=== PATIENT | female | born 1930 | race Caucasian/White ===

== ENCOUNTER → 2017-04-08 | Outpatient (CLI) | payer MEDICARE ==
[~2017-04-08] MED LIST: ACLI400A2 INH; ALBU0.63 NEB; ASPI-621 PO; ATOR10TA9; BISA10SU2 PR; CALC-112 PO; CEFD300C37 PO; DIAZ5TAB; DOCU-131 PO; FLUT12HF2; FLUT1DIS; FLUT1DIS IH; LISI-167; LISI5TAB7 PO; METH1TAB13 PO; MULT-257 PO; MULT-658 PO; ONDA4TAB10 PO; OXYC-302 PO; PARO10TA3; PARO10TA56 PO; POLY17PO5 PO; PRAV10TA2 PO; QUET25TA5 PO; SPIREVA; TAMS-11 PO; TIOT18CA INH; [UNRECOGNIZED DRUG - CODE] PO
[2017-04-08 15:55] LABS: BASOPHILS # (AUTO) 0.04 x10^3/uL (0-0.1); BASOPHILS % (AUTO) 1 % (0-1); EOSINOPHILS # (AUTO) 0.17 x10^3/uL (0-0.4); EOSINOPHILS % (AUTO) 2 % (1-7); LYMPHOCYTES % (AUTO) 22 % (22-44); MD NO; MEAN CORPUSCULAR HGB CONC 31.4 g/dL (32.4-35.8); MEAN CORPUSCULAR VOLUME 63.6 fL (80-100); MEAN PLATELET VOLUME 9.2 fL (7.4-10.4); MONOCYTES # (AUTO) 0.65 x10^3/uL (0.2-0.8); MONOCYTES % (AUTO) 7 % (2-9); NEUTROPHILS % (AUTO) 69 % (42-75); PLATELET COUNT 214 x10^3/uL (130-400); RED BLOOD COUNT 5.64 x10^6/uL (3.82-5.3); RED CELL DISTRIBUTION WIDTH 15.7 % (9.6-15.2)
[2017-04-08 16:08] LABS: CHLORIDE 108 mmol/L (98-107)
[2017-04-08 16:17] LABS: ALANINE AMINOTRANSFERASE 45 U/L (12-78); ALBUMIN 3.8 g/dL (3.4-5.0); ALKALINE PHOSPHATASE 63 U/L (45-117); ANION GAP 7 mmol/L (5-15); BILIRUBIN,TOTAL 1.1 mg/dL (0.2-1.0); CALCIUM 9.7 mg/dL (8.5-10.1); CHOL/HDL RATIO 2.6; CHOLESTEROL, TOTAL 127 mg/dL (140-239); CREATININE 0.67 mg/dL (0.55-1.02); HDL CHOL % 39 % (28-40); HDL CHOLESTEROL (DIRECT) 49 mg/dL (40-60); LDL CHOLESTEROL,CALCULATED 47 mg/dL (54-169); TOTAL PROTEIN 7.7 g/dL (6.4-8.2); TRIGLYCERIDES 153 mg/dL (50-200); VLDL CHOLESTEROL 31 mg/dL (0-25)
== END | disposition home or self-care (01) ==
LOC: CFH 14:45
PROVIDERS: ATTEND Nurse Practitioner
DX: D72.829 Elevated white blood cell count, unspecified (principal); I10 Essential (primary) hypertension; R71.8 Other abnormality of red blood cells
CPT/HCPCS: 36415; 80053; 80061; 85025

== ENCOUNTER 2017-10-03 08:09 | Emergency (ER) | payer MEDICARE ==
[~2017-10-03] VITALS: Ht 165.1 cm; Wt 66.4 kg
[2017-10-03] MEDS ORDERED: DIAZ5TAB4 PO (08:40)
[2017-10-03] MEDS ORDERED: BUSP5TAB2 PO (08:40)
[2017-10-03] MEDS ORDERED: ATOR-2 PO (08:40)
[2017-10-03] MEDS ORDERED: AMLO10TA2 PO (08:40)
[2017-10-03] MEDS ORDERED: BRAN1000 PO (08:40)
[2017-10-03 09:00] LABS: BASOPHILS # (AUTO) 0.01 x10^3/uL (0-0.1); BASOPHILS % (AUTO) 0 % (0-1); EOSINOPHILS # (AUTO) 0.12 x10^3/uL (0-0.4); EOSINOPHILS % (AUTO) 1 % (1-7); LYMPHOCYTES # (AUTO) 1.84 x10^3/uL (1-3.4); LYMPHOCYTES % (AUTO) 19 % (22-44); MD NO; MEAN CORPUSCULAR HEMOGLOBIN 20.3 pg (27.0-34.8); MEAN CORPUSCULAR HGB CONC 31.4 g/dL (32.4-35.8); MEAN CORPUSCULAR VOLUME 64.6 fL (80-100); MEAN PLATELET VOLUME 8.3 fL (7.4-10.4); MONOCYTES # (AUTO) 0.46 x10^3/uL (0.2-0.8); MONOCYTES % (AUTO) 5 % (2-9); NEUTROPHILS # (AUTO) 7.29 x10^3/uL (1.8-6.8); NEUTROPHILS % (AUTO) 75 % (42-75); PLATELET COUNT 222 x10^3/uL (130-400); RED CELL DISTRIBUTION WIDTH 15.1 % (9.6-15.2)
[2017-10-03 09:11] LABS: ALANINE AMINOTRANSFERASE 49 U/L (12-78); ALBUMIN 3.8 g/dL (3.4-5.0); ANION GAP 7 mmol/L (5-15); CALCIUM 9.8 mg/dL (8.5-10.1); CHLORIDE 107 mmol/L (98-107); CREATININE 0.72 mg/dL (0.55-1.02)
[2017-10-03 09:13] LABS: ALKALINE PHOSPHATASE 58 U/L (45-117); BILIRUBIN,TOTAL 0.9 mg/dL (0.2-1.0); TOTAL PROTEIN 7.3 g/dL (6.4-8.2)
[2017-10-03 09:55] LABS: CULTURE INDICATED? NO; MICROSCOPIC NOT IND
[2017-10-03 10:00] VITALS: BP 127/56
== END 2017-10-03 10:25 | disposition home or self-care (01) ==
LOC: ED 09:30
DX: R42 Dizziness and giddiness (principal); Z76.0 Encounter for issue of repeat prescription; E78.5 Hyperlipidemia, unspecified; J43.9 Emphysema, unspecified; Z87.891 Personal history of nicotine dependence
CPT/HCPCS: 36415; 80053; 81003; 85025; 93005; 99285

== ENCOUNTER → 2018-01-29 | Outpatient (CLI) | payer MEDICARE ==
[~2018-01-29] MED LIST changes: +AMLO10TA6 PO; +ATOR-2 PO; +BRAN1000 PO; +BUSP5TAB2 PO; +DIAZ5TAB4 PO
== END | disposition home or self-care (01) ==
LOC: CFH 12:18
PROVIDERS: ATTEND Licensed Practical Nurse
DX: N63.24 Unspecified lump in the left breast, lower inner quadrant (principal)
CPT/HCPCS: 77066

== ENCOUNTER 2018-05-23 09:43 | Emergency (ER) | payer MEDICARE ==
[~2018-05-23] VITALS: Ht 162.6 cm; Wt 68.0 kg
[~2018-05-23 09:43] MED LIST changes: -AMLO10TA6 PO; +AMLO10TA8 PO; -ASPI-621 PO; +ASPI81TA45 PO
--- NOTE | 2018-05-23 10:02 | NUR ---
DR ZAYAS BS FOR EXAM. PT SITTING ON SIDE OF BED. STATES SHE HAD A HEAD COLD IN FEBRUARY. CURRENTLY: "I THINK I HAVE PNEUMONIA" "I'VE BEEN LIVING ON MUCINEX" REPORTS PRODUCTIVE COUGH, RUNNY NOSE, CHILLS, CHEST CONGESTION. DENIES FEVER, CP. NO ACETAMINOPHEN, IBUPROFEN OR ASA TAKEN TODAY. TOOK MUCINEX EARLIER.
--- NOTE | 2018-05-23 10:15 | NUR ---
TO XR PER WC.
[2018-05-23] MEDS ORDERED: ALBUTEROL/IPRATROPIUM 2.5MG/0.5MG, 3 ML ONE (10:17)
--- NOTE | 2018-05-23 10:21 | NUR ---
PT IN TR01, RESP TECH AT BS.
[2018-05-23] MEDS ORDERED: ALBUTEROL/IPRATROPIUM 2.5MG/0.5MG, 3 ML NPPB ONE (10:30)
[2018-05-23 10:45] LABS: BASOPHILS # (AUTO) 0.06 x10^3/uL (0-0.1); BASOPHILS % (AUTO) 1 % (0-1); EOSINOPHILS # (AUTO) 0.24 x10^3/uL (0-0.4); EOSINOPHILS % (AUTO) 3 % (1-7); LYMPHOCYTES # (AUTO) 1.61 x10^3/uL (1-3.4); LYMPHOCYTES % (AUTO) 21 % (22-44); MD NO; MEAN CORPUSCULAR HEMOGLOBIN 20.7 pg (27.0-34.8); MEAN CORPUSCULAR HGB CONC 31.8 g/dL (32.4-35.8); MEAN CORPUSCULAR VOLUME 65.1 fL (80-100); MEAN PLATELET VOLUME 9.1 fL (7.4-10.4); MONOCYTES % (AUTO) 8 % (2-9); NEUTROPHILS # (AUTO) 5.32 x10^3/uL (1.8-6.8); NEUTROPHILS % (AUTO) 68 % (42-75); PLATELET COUNT 250 x10^3/uL (130-400); RED BLOOD COUNT 5.31 x10^6/uL (3.82-5.3); RED CELL DISTRIBUTION WIDTH 15.4 % (9.6-15.2)
[2018-05-23 10:53] LABS: ALBUMIN 3.6 g/dL (3.4-5.0); ANION GAP 7 mmol/L (5-15); CALCIUM 9.5 mg/dL (8.5-10.1); CHLORIDE 111 mmol/L (98-107); CREATININE 0.95 mg/dL (0.55-1.02)
[2018-05-23 10:58] LABS: TROPONIN I < 0.015 ng/mL (0.000-0.045)
[2018-05-23] MEDS ORDERED: ATOR10TA9 PO (11:54)
[2018-05-23] MEDS ORDERED: BUSP5TAB2 PO (11:54)
[2018-05-23] MEDS ORDERED: UMEC1DIS INH (11:54)
[2018-05-23] MEDS ORDERED: ALEN70TA6 PO (11:56)
--- NOTE | 2018-05-23 12:17 | NUR ---
BP 89/. ERP WILL BE NOTIFIED. PT A&OX4, RESP EVEN & UNLABORED, ABLE TO SPEAK IN COMPLETE SENTENCES. PT STATES "I FEEL FINE".
[2018-05-23 12:25] VITALS: BP 134/25
== END 2018-05-23 12:43 | disposition home or self-care (01) ==
LOC: ED 10:45
DX: J06.9 Acute upper respiratory infection, unspecified (principal)
CPT/HCPCS: 36415; 71046; 80048; 82040; 83880; 84484; 85025; 93005; 94640; 99284; J7620